=== PATIENT | female | born 1955 | race Caucasian/White ===

== ENCOUNTER 2022-09-16 10:55 | Emergency (ER) | payer BC ==
[2022-09-16] MEDS ORDERED: PROPOFOL 20 ML ONE (11:55)
[2022-09-16] MEDS ORDERED: fentaNYL 50 mcg/mL 1 mL Vial ONE (12:10)
[2022-09-16] MEDS ORDERED: Boostrix 0.5 ML (Tdap) VIAL (>/=7 yrs of age) ONE (12:45)
== END 2022-09-16 12:48 | disposition home or self-care (01) ==
LOC: CSHERS 10:55
DX: S82.891A Other fracture of right lower leg, initial encounter for closed fracture (principal); S82.102A Unspecified fracture of upper end of left tibia, initial encounter for closed fracture; S52.501A Unspecified fracture of the lower end of right radius, initial encounter for closed fracture; S92.351A Displaced fracture of fifth metatarsal bone, right foot, initial encounter for closed fracture; Z23 Encounter for immunization; W11.XXXA Fall on and from ladder, initial encounter
CPT/HCPCS: 27840; 90471; 90715; 99152; 99153; G0390; J2704; J3010

== ENCOUNTER 2022-10-09 12:14 | Outpatient (CLI) | payer BC ==
[2022-10-09 13:46] LABS: Hemoglobin 9.7 g/dL (12.0-15.5); Mean Corpuscular HGB CONC 30.7 g/dL (32.0-36.0); Mean Corpuscular Hemoglobin 27.6 pg (27.0-33.0); Mean Corpuscular Volume 89.8 fl (81.6-98.3); Mean Platelet Volume 9.6 fl (7.4-10.4); Platelet Count 395 10x3/uL (150-450); RBC Distribution Width 14.9 % (11.5-14.5); Red Blood Cell (RBC) Count 3.52 10x6/uL (3.90-5.03); White Blood Cell (WBC) Count 8.2 10x3/uL (3.5-10.5)
[2022-10-09 13:51] LABS: Anion Gap 15 mmol/L (10-20); BUN (Urea Nitrogen) 17 mg/dL (9.8-20.1); Calc. Creatinine Clearance 0 mL/min (70-130); Calcium 9.2 mg/dL (7.8-10.44); Carbon Dioxide 25 mmol/L (23-31); Chloride 107 mmol/L (98-107); Estimated GFR 79; Glucose 83 mg/dL (80-115); Sodium 143 mmol/L (136-145)
== END 2022-10-09 12:15 | disposition home or self-care (01) ==
LOC: CSHLAB 12:14
PROVIDERS: ATTEND Orthopaedic Surgery
DX: Z01.818 Encounter for other preprocedural examination (principal); S52.501A Unspecified fracture of the lower end of right radius, initial encounter for closed fracture; S93.314A Dislocation of tarsal joint of right foot, initial encounter
CPT/HCPCS: 80048; 85027; 93005; 93010